=== PATIENT | male | born 1985 | race African-American/Black ===

== ENCOUNTER 2020-01-25 13:55 | Emergency (ER) | payer BC ==
[2020-01-25] MEDS ORDERED: EPINEPHrine 1:1,000 0.3 MG/0.3 ML SYR IM ONE (13:56)
[2020-01-25] MEDS ORDERED: FAMOTIDINE 20 MG/50 ML IVPB 20 MG/50 ML MG IVPB ONE (13:56)
[2020-01-25] MEDS ORDERED: methylPREDNISolone NA SUCC 125 MG/2 ML VIAL IVPB ONE (13:57)
[2020-01-25] MEDS ORDERED: SODIUM CHLORIDE 0.9% 500 ML INFUS.BAG IV ONE (14:03)
[2020-01-25 14:09] VITALS: TEMP 98.6; BMI 34.4
--- NOTE | 2020-01-25 14:12 | PDOC ---
History of Present Illness - General Chief Complaint: Allergic Reaction Stated Complaint: ALLERGIC REACTION Time Seen by Provider: 01/25/20 13:59 - History of Present Illness Initial Comments: The pt is a 34M w/ no reported PMH who presents for evaluation of an allergic reaction. The pt reports eating at a restaurant approximately 30 minutes ago when the reaction started. He reports swollen eyes, feeling nasal swelling, and voice change. He denies painful swallowing, throat tightness, tongue swelling, chest tightness, trouble breathing, chest pain, rash, or itching. The pt has an EpiPen at home but did not take it with him today. He did take Benadryl 50mg PO once at the start of his symptoms. Denies recent illness/travel, fevers, cough, SANDOVAL, vision changes, trouble breathing, abdominal pain, N/V/C/D, dysuria, change in sensation or strength PMH: Denies PSH: Foot surgery Meds: Denies Allergies: Tree nuts, Amoxicillin SH: +Tobacco, +Social EtOH, Denies illicit drug use 01/25/20 14:05 Past History - Medical History Allergies/Adverse Reactions: Allergies Allergy/AdvReac Type Severity Reaction Status Date / Time amoxicillin Allergy Verified 01/25/20 14:06 tree nut Allergy Verified 01/25/20 14:06 Home Medications: Ambulatory Orders Epinephrine [Epipen 2-Joel] 0.3 mg IJ ASDIR #1 kit 01/25/20 predniSONE [Deltasone -] 40 mg PO DAILY #6 tablet 01/25/20 Review of Systems - Review of Systems Able to Perform ROS?: Yes Comments:: GENERAL/CONSTITUTIONAL: No fever or chills. No weakness HEAD, EYES, EARS, NOSE AND THROAT: No change in vision. No change in hearing CARDIOVASCULAR: No chest pain or shortness of breath RESPIRATORY: Denies cough, hemoptysis GASTROINTESTINAL: No nausea, vomiting, diarrhea or constipation GENITOURINARY: No dysuria, frequency, or change in urination MUSCULOSKELETAL: No joint or muscle pain. No neck or back pain SKIN: No rash NEUROLOGIC: No headache, vertigo, loss of consciousness, or change in strength/sensation ENDOCRINE: No increased thirst. No abnormal weight change HEMATOLOGIC/LYMPHATIC: No anemia, easy bleeding, or history of blood clots ALLERGIC/IMMUNOLOGIC: +b/l eye swelling, nasal congestion/swelling, voice change 01/25/20 14:09 Is the patient limited Japanese proficient: No *Physical Exam - Physical Exam GENERAL: Awake, alert, and oriented to person/place/time, in no acute distress HEAD: No signs of trauma, normocephalic, atraumatic EYES: PERRLA, EOMI, sclera anicteric, conjunctiva clear; periorbital edema noted b/l ENT: Hearing grossly normal, nares patent, oropharynx clear without exudates or edema. Pt with nasal voice. No uvular deviation. Moist mucosa LUNGS: No distress, speaks in full sentences, clear to auscultation bilaterally HEART: Regular rate and rhythm, normal S1 and S2, no murmurs appreciated, peripheral pulses normal and equal bilaterally ABDOMEN: Soft, nontender, normoactive bowel sounds. No guarding, no rebound EXTREMITIES: Normal inspection, Normal range of motion, no edema. No clubbing or cyanosis NEUROLOGICAL: Cranial nerves II through XII grossly intact. Normal speech, normal gait, no focal sensorimotor deficits SKIN: Warm, Dry, no rash 01/25/20 14:10 Medical Decision Making - Medical Decision Making The pt is a 34M w/ no reported PMH who presents for evaluation of an allergic reaction likely 2/2 tree nuts. Pt protecting airway at this time and s/p Benadryl 50mg PO prior to arrival. ED Course Pt placed on the monitor IV access obtained Epi 0.3mg IM given immediately Pepcid 20mg IV once, Solumedrol 125mg IV once, 1L NS IV once given Will reassess pt 01/25/20 14:12 Pt with improved symptoms at this time Pt breathing comfortably on room air w/ clear breath sounds. No stridor Pt voice now normal and denies feeling nasal fullness Pt periorbital edema improved but not resolved Rx for EpiPen x2 and Prednisone 40mg PO daily (3 days) sent to pt's pharmacy 01/25/20 16:13 Pt continues to feel improved Plan for D/C w/ PCP f/u Discharge instructions and return precautions given Patient in agreement and verbalized understanding Dispo: Home 01/25/20 16:57 Discharge - Discharge Information Problems reviewed: Yes Clinical Impression/Diagnosis: Allergic reaction Qualifiers: Encounter type: initial encounter Qualified Code(s): T78.40XA - Allergy, unspecified, initial encounter Condition: Improved - Admission No - Additional Discharge Information Prescriptions: predniSONE [Deltasone -] 40 mg PO DAILY #6 tablet Epinephrine [Epipen 2-Joel] 0.3 mg IJ ASDIR #1 kit - Follow up/Referral Referrals: [facility] [place] [facility] [Provider Group] - Patient Discharge Instructions Patient Printed Discharge Instructions: DI for General Allergic Reactions Additional Instructions: You were seen in the Emergency Department for evaluation of an allergic reaction. You were treated with epinephrine, pepcid, steroids, and fluids. A prescription for 2 EpiPens and Prednisone were sent to your pharmacy. Start taking the Prednisone tomorrow (for 3 days total). You may also take Benadryl 25mg every 6 hours as needed for symptoms. Review the handout provided at discharge. Follow up with your primary care provider or the referral provided within a week. Return to the Emergency Department if you develop fevers/chills, worsening swelling, difficulty swallowing or breathing, tongue swelling, throat swelling, chest tightness, chest pain, trouble breathing, nausea/vomiting, worsening symptoms, or any new/concerning symptoms. - Post Discharge Activity Work/Back to School Note: Back to Work
--- NOTE | 2020-01-25 15:41 | PDOC ---
Attending Attestation - Resident Resident Name: Carter Mireles - ED Attending Attestation I have performed the following: I have examined & evaluated the patient, The case was reviewed & discussed with the resident, I agree w/resident's findings & plan, Exceptions are as noted - HPI HPI: 01/25/20 18:27 Agree with resident HPI - Physicial Exam PE: 01/25/20 18:27 Agree with resident exam - Medical Decision Making 01/25/20 18:27 34-year-old male with a history of allergy to tree nuts requiring epinephrine, but never intubated or admitted presents the emergency department with allergic reaction after eating at a restaurant. Patient took Benadryl prior to arrival Lungs are clear on arrival with no wheezing, no vomiting. No hypotension however patient with complaint of voice change and nasal swelling and thus was given IM epi Pt observed in ED for 3 hours with significant improvement in symptoms after epi, pepcid, steroids, and benadryl Pt with persistent periorbital watery edema, however states this is often the last symptom to subside after an allergic reaction He is breathing comfortably and denies any sensation of throat closing, shortness of breath, coughing, nausea or vomiting. Phonation wnl w/o hoarseness. He feels much better and requests discharge home. 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 He has used an EpiPen before and thus is familiar with how and when to use them. Vitals wnl I discussed the physical exam findings, ancillary test results and final diagnoses with the patient. I answered all of the patient's questions. The patient was satisfied with the care received and felt comfortable with the discharge plan and treatment plan. The patient will call their primary care physician within 24 hours to arrange follow-up and will return to the Emergency Department with any new, persistent or worsening symptoms. Discharge - Discharge Information Problems reviewed: Yes Clinical Impression/Diagnosis: Periorbital edema of both eyes, Change in voice Allergic reaction Qualifiers: Encounter type: initial encounter Qualified Code(s): T78.40XA - Allergy, unspecified, initial encounter Condition: Improved Disposition: HOME - Additional Discharge Information Prescriptions: predniSONE [Deltasone -] 40 mg PO DAILY #6 tablet Epinephrine [Epipen 2-Joel] 0.3 mg IJ ASDIR #1 kit - Follow up/Referral Referrals: [facility] [place] [Provider Group] - Patient Discharge Instructions Patient Printed Discharge Instructions: DI for General Allergic Reactions Additional Instructions: You were seen in the Emergency Department for evaluation of an allergic reaction. You were treated with epinephrine, pepcid, steroids, and fluids. A prescription for 2 EpiPens and Prednisone were sent to your pharmacy. Start taking the Prednisone tomorrow (for 3 days total). You may also take Benadryl 25mg every 6 hours as needed for symptoms. Review the handout provided at discharge. Follow up with your primary care provider or the referral provided within a week. Return to the Emergency Department if you develop fevers/chills, worsening swelling, difficulty swallowing or breathing, tongue swelling, throat swelling, chest tightness, chest pain, trouble breathing, nausea/vomiting, worsening symptoms, or any new/concerning symptoms. - Post Discharge Activity Work/Back to School Note: Back to Work
[2020-01-25 17:04] VITALS: BP 135/77; PULSE 74
== END 2020-01-25 17:00 | disposition home or self-care (01) ==
LOC: FER 13:55
PROC: 3E023GC Introduction of Other Therapeutic Substance into Muscle, Percutaneous Approach (ICD-10-PCS; principal; 2020-01-25)
PROC: 3E033GC Introduction of Other Therapeutic Substance into Peripheral Vein, Percutaneous Approach (ICD-10-PCS; principal; 2020-01-25)
DX: T78.40XA Allergy, unspecified, initial encounter (principal)
CPT/HCPCS: 99284-25